=== PATIENT | female | born 1955 | race Caucasian/White ===

== ENCOUNTER 2019-05-09 11:38 | Emergency (ER) | payer OTHER, BC ==
[~2019-05-09] VITALS: Ht 162.6 cm; Wt 105.7 kg
[2019-05-09 11:52] VITALS: Ht 162.6 cm; Wt 105.7 kg
[2019-05-09 13:51] VITALS: BP 160/77
== END 2019-05-09 14:20 | disposition home or self-care (01) ==
LOC: EDBD 11:38 → ED 11:38
DX: M10.9 Gout, unspecified (principal)
CPT/HCPCS: 36415; Q0092

== ENCOUNTER 2019-07-03 10:39 | Emergency (ER) | payer OTHER, BC ==
[~2019-07-03] VITALS: Ht 162.6 cm; Wt 108.1 kg
[2019-07-03 10:42] VITALS: Ht 162.6 cm; Wt 108.1 kg
[2019-07-03 12:22] VITALS: BP 129/62
== END 2019-07-03 12:27 | disposition home or self-care (01) ==
LOC: ED 10:39
DX: B34.9 Viral infection, unspecified (principal); I12.9 Hypertensive chronic kidney disease with stage 1 through stage 4 chronic kidney disease, or unspecified chronic kidney disease; N18.9 Chronic kidney disease, unspecified; E78.00 Pure hypercholesterolemia, unspecified